=== PATIENT | male | born 1945 | race Caucasian/White ===

== ENCOUNTER → 2019-06-07 | Outpatient (CLI) | payer OTHER ==
[~2019-06-07] MED LIST: ANAPROX DS550 MG PO; BACTROBAN OINT22 GM PO; KEFLEX500 MG PO
== END | disposition home or self-care (01) ==
LOC: RAD 08:01
DX: M17.11 Unilateral primary osteoarthritis, right knee (principal); M71.21 Synovial cyst of popliteal space [Baker], right knee; M25.461 Effusion, right knee

== ENCOUNTER → 2020-08-15 | Outpatient (CLI) | payer OTHER ==
[~2020-08-15] MED LIST changes: +AMLODIPINE BESY10 MG PO; +XARELTO10 MG PO; +ZESTORETIC 10-1 EACH PO; +ZOCOR20 MG PO
--- NOTE | 2020-08-15 12:30 | NUR ---
INFORMED CONSENT OBTAINED FOR LEXISCAN NUCLEAR STRESS TEST WITH DR. WILEY. RESTING EKG ATRIAL FIB WITH A RESTING HR OF 52 WITH BP OF 140/58. LUNGS CLEAR WITH SPO2 OF 100% ON ROOM AIR. PT COMPLETED A 1:00 LEXISCAN PROTOCOL RECEIVING LEXISCAN 0.4 MG IV OVER 10 SECONDS. HAD NO CHEST PAIN OR ANY EKG CHANGES. ISOMETRIC HAND EXERCISES PERFORMED FOR 1:00 WITH INJECTION. HAD A PEAK HR OF 69 WITH BP OF 122/52. LAST RECOVERY HR OF 55 WITH BP OF 132/50. AWAITING SCANNING IN STABLE CONDITION.
== END | disposition home or self-care (01) ==
LOC: CARD 00:33
PROVIDERS: ATTEND Internal Medicine
DX: R94.39 Abnormal result of other cardiovascular function study (principal); I48.11 Longstanding persistent atrial fibrillation; R94.31 Abnormal electrocardiogram [ECG] [EKG]

== ENCOUNTER → 2022-01-02 | Day surgery (SDC) | payer OTHER ==
[~2022-01-02] VITALS: Ht 185.4 cm; Wt 77.1 kg
[2022-01-02 09:34] VITALS: BP 190/88; BP 217/90
[2022-01-02 10:22] VITALS: BP 174/97
[2022-01-02 10:37] VITALS: BP 176/77
[2022-01-02 10:50] VITALS: BP 176/64
== END | disposition home or self-care (01) ==
LOC: SDC 12-28 13:45
PROVIDERS: ATTEND Ophthalmology
DX: H25.812 Combined forms of age-related cataract, left eye (principal); I48.91 Unspecified atrial fibrillation; I10 Essential (primary) hypertension; E78.00 Pure hypercholesterolemia, unspecified; Z96.659 Presence of unspecified artificial knee joint; Z20.822 Contact with and (suspected) exposure to COVID-19; Z79.899 Other long term (current) drug therapy

== ENCOUNTER → 2022-03-06 | Day surgery (SDC) | payer OTHER ==
[~2022-03-06] VITALS: Ht 185.4 cm; Wt 77.1 kg
[2022-03-06 09:23] VITALS: BP 204/97
[2022-03-06 10:11] VITALS: BP 158/96
[2022-03-06 10:26] VITALS: BP 168/60
== END | disposition home or self-care (01) ==
LOC: SDC 03-01 13:15
PROVIDERS: ATTEND Ophthalmology
DX: H25.811 Combined forms of age-related cataract, right eye (principal); I10 Essential (primary) hypertension; I48.91 Unspecified atrial fibrillation; E78.00 Pure hypercholesterolemia, unspecified; F17.290 Nicotine dependence, other tobacco product, uncomplicated; Z96.659 Presence of unspecified artificial knee joint; Z90.89 Acquired absence of other organs; Z79.899 Other long term (current) drug therapy

== ENCOUNTER → 2022-10-24 | Outpatient (CLI) | payer OTHER ==
[2022-10-24 16:33] LABS: BASO # 0.1 10*3/uL (0.0-0.1); EOS # 0.1 10*3/uL (0.0-0.4); HEMATOCRIT 35.1 % (42.0-52.0); LYMPH # 1.3 10*3/uL (1.3-4.4); LYMPH % 21.7 % (27.0-41.0); MEAN CELL VOLUME 93.4 fl (80.0-94.0); MEAN CORPUSCULAR HGB 31.6 pg (27.0-31.0); MEAN CORPUSCULAR HGB CONC 33.9 g/dl (33.0-37.0); MEAN PLATELET VOLUME 9.1 fl (9.6-12.3); MONO # 0.8 10*3/uL (0.1-1.0); NEUT # 3.8 10*3/uL (2.3-7.9); NEUT % 61.8 % (47.0-73.0); PLATELET COUNT AUTOMATED 236 10*3/uL (130-400); RED BLOOD COUNT 3.76 10*6/uL (4.50-5.90); RED CELL DISTRI WIDTH 12.9 % (0-14.5); WHITE BLOOD COUNT 6.1 10*3/uL (4.8-10.8)
[2022-10-24 16:49] LABS: ALKALINE PHOSPHATASE 54 U/L (46-116); BUN 8 mg/dl (9-23); CHLORIDE 96 mmol/L (98-107); CHOLESTEROL 126 mg/dL (<200); CREATININE 0.56 mg/dL (0.70-1.30); LDL CHOLESTEROL 53 mg/dL (9-159); POTASSIUM 3.9 mmol/L (3.4-5.1); SGPT/ALT 16 U/L (10-49); TOTAL PROTEIN 6.9 gm/dL (6.0-8.0); TRIGLYCERIDES 50 mg/dl (<150)
== END | disposition home or self-care (01) ==
LOC: RESCLI 01:11
PROVIDERS: Internal Medicine; ATTEND Student in an Organized Health Care Education/Training Program
DX: I10 Essential (primary) hypertension (principal); E78.5 Hyperlipidemia, unspecified; I48.0 Paroxysmal atrial fibrillation; E53.8 Deficiency of other specified B group vitamins; E55.9 Vitamin D deficiency, unspecified; H90.3 Sensorineural hearing loss, bilateral; F17.200 Nicotine dependence, unspecified, uncomplicated; Z72.89 Other problems related to lifestyle; Z82.49 Family history of ischemic heart disease and other diseases of the circulatory system; Z98.890 Other specified postprocedural states; Z79.01 Long term (current) use of anticoagulants; Z79.899 Other long term (current) drug therapy

== ENCOUNTER → 2022-12-24 | Outpatient (CLI) | payer OTHER ==
[2022-12-24 12:54] LABS: BASO # 0.1 10*3/uL (0.0-0.1); BASO % 0.8 % (0.0-1.0); EOS # 0.2 10*3/uL (0.0-0.4); EOS % 2.6 % (1.0-4.0); HEMATOCRIT 29.5 % (42.0-52.0); LYMPH # 1.2 10*3/uL (1.3-4.4); LYMPH % 17.7 % (27.0-41.0); MEAN CORPUSCULAR HGB 30.9 pg (27.0-31.0); MEAN CORPUSCULAR HGB CONC 31.9 g/dl (33.0-37.0); MONO % 15.4 % (3.0-9.0); NEUT # 4.1 10*3/uL (2.3-7.9); PLATELET COUNT AUTOMATED 293 10*3/uL (130-400); RED BLOOD COUNT 3.04 10*6/uL (4.50-5.90); RED CELL DISTRI WIDTH 13.9 % (0-14.5); WHITE BLOOD COUNT 6.5 10*3/uL (4.8-10.8)
[2022-12-24 13:16] LABS: ALKALINE PHOSPHATASE 58 U/L (46-116); BUN 25 mg/dl (9-23); CHLORIDE 107 mmol/L (98-107); POTASSIUM 4.1 mmol/L (3.4-5.1); SGPT/ALT 12 U/L (10-49); TOTAL PROTEIN 6.5 gm/dL (6.0-8.0)
== END | disposition home or self-care (01) ==
LOC: LAB 12:33
PROVIDERS: ATTEND Internal Medicine
DX: R60.0 Localized edema (principal); R06.02 Shortness of breath